=== PATIENT | male | born 1995 | race Caucasian/White ===

== ENCOUNTER 2016-07-11 18:53 | Emergency (ER) | payer MEDICAID ==
[~2016-07-11] VITALS: Ht 182.9 cm; Wt 90.9 kg
[2016-07-11 19:15] VITALS: BP 130/81; TEMP 98.8
[2016-07-11] MEDS ORDERED: GEODON80 MG PO (19:19)
[2016-07-11] MEDS ORDERED: PRILOSEC 20MG20 MG PO (19:20)
[2016-07-11 20:15] VITALS: PULSE 75
== END 2016-07-11 20:15 | disposition home or self-care (01) ==
LOC: COL.ER 18:53
DX: S82.831A Other fracture of upper and lower end of right fibula, initial encounter for closed fracture (principal); X50.1XXA Overexertion from prolonged static or awkward postures, initial encounter

== ENCOUNTER → 2016-09-07 | Outpatient (CLI) | payer MEDICAID ==
[~2016-09-07] MED LIST: GEODON80 MG PO; PRILOSEC 20MG20 MG PO
== END ==
LOC: COL.RAD 14:09
DX: S93.491A Sprain of other ligament of right ankle, initial encounter (principal); X58.XXXS Exposure to other specified factors, sequela